=== PATIENT | female | born 1975 | race Asian ===

== ENCOUNTER 2020-12-20 16:19 | Inpatient (IN) | payer OTHER ==
[~2020-12-20] VITALS: Ht 157.5 cm; Wt 72.6 kg
[2020-12-20] MEDS ORDERED: LACTATED RINGERS 1,000 ML IV SCH (17:15)
[2020-12-20 18:23] LABS: BASOPHILS % 0.2 % (0.0-2.0); EOSINOPHILS % 0.5 % (0.0-5.0); HEMATOCRIT. 40.7 % (36.0-48.0); HEMOGLOBIN. 14.2 g/dL (12.0-16.0); MEAN PLATELET VOLUME 10.3 fl (7.4-10.4); MONOCYTES % 6.8 % (2.0-8.0); NEUTROPHILS % 67.5 % (40.0-76.0); PLATELET 203 x1000/uL (130-400); RED BLOOD CELL COUNT 4.43 mill/uL (4.2-5.4)
[2020-12-20 18:24] LABS: CLARITY URINE CLEAR (CLEAR); COLOR URINE YELLOW (YELLOW); KETONES URINE NEGATIVE (NEGATIVE); LEUKOCYTE ESTERASE URINE TRACE (NEGATIVE); NITRITE URINE NEGATIVE (NEGATIVE); OCCULT BLOOD URINE NEGATIVE (NEGATIVE); PH URINE 6.5 (4.5-8.0); PROTEIN URINE NEGATIVE (NEGATIVE); SPECIFIC GRAVITY URINE 1.007 (1.005-1.030); UROBILINOGEN URINE 0.2 E.U./dL (0.2-1.0)
[2020-12-20] MEDS ORDERED: OXYTOCIN 20 UNITS in LACTATED RINGERS 1,000 ML IV SCH (18:30)
[2020-12-20 18:34] LABS: *AMPHETAMINES SCREEN URINE NEGATIVE (NEGATIVE); *BARBITURATES SCREEN URINE NEGATIVE (NEGATIVE); *BENZODIAZEPINES SCREEN URINE NEGATIVE (NEGATIVE); *COCAINE SCREEN URINE NEGATIVE (NEGATIVE); METHADONE URINE SCREEN NEGATIVE (NEGATIVE); OPIATES URINE SCREEN NEGATIVE (NEGATIVE)
[2020-12-20 18:35] LABS: CANNABINOID URINE SCREEN NEGATIVE (NEGATIVE); PHENCYCLIDINE URINE SCREEN NEGATIVE (NEGATIVE)
[2020-12-20 18:40] LABS: INR 0.9; PARTIAL THROMBOPLASTIN TIME 26.5 sec (23.4-31.0); PROTHROMBIN TIME 9.8 sec (9.6-11.0)
[2020-12-20] MEDS ORDERED: FENTANYL CITRATE/PF 50MCG/ML 2ML VIAL ONE ×2 (18:40→19:38)
[2020-12-20] MEDS ORDERED: MORPHINE SULFATE/PF 1MG/ML 10ML AMP ONE (18:40)
[2020-12-20] MEDS ORDERED: IBUPROFEN 400MG TABLET PO PRN (18:45)
[2020-12-20] MEDS ORDERED: DIPHENHYDRAMINE 25MG CAPSULE PO PRN (18:45)
[2020-12-20] MEDS ORDERED: LANOLIN OINT 7GM TUBE TOP PRN (18:45)
[2020-12-20] MEDS ORDERED: ONDANSETRON HCL 4MG/2ML INJ IV PRN ×2 (18:45→19:30)
[2020-12-20] MEDS ORDERED: OXYCODONE HCL/ACETAMINOPHEN 5/325MG TABLET PO PRN (18:45)
[2020-12-20] MEDS ORDERED: HYDROMORPHONE HCL/PF 2MG/ML CPJ IV PRN ×2 (18:45→19:30)
[2020-12-20 19:02] LABS: HEPATITIS B SURFACE ANTIGEN NEGATIVE
[2020-12-20] MEDS ORDERED: KETAMINE HCL 50 MG/ML 10ML ONE (19:21)
[2020-12-20] MEDS ORDERED: MIDAZOLAM HCL 2 MG/2 ML VIAL ONE ×2 (19:22→19:48)
[2020-12-20] MEDS ORDERED: LABETALOL 5MG/ML SYR 20 MG/4 ML SYRINGE IV PRN (19:30)
[2020-12-20] MEDS ORDERED: MEPERIDINE HCL/PF 25MG/ML CPJ IV PRN (19:30)
[2020-12-20] MEDS ORDERED: BUTORPHANOL TARTRATE 2 MG/ML VIAL IM PRN (19:30)
[2020-12-20] MEDS ORDERED: KETOROLAC 30MG/ML VIAL IV PRN (19:30)
[2020-12-20] MEDS ORDERED: DIPHENHYDRAMINE 50MG/ML VIAL IV PRN (19:30)
[2020-12-20] MEDS ORDERED: DOCUSATE SODIUM 100MG CAPSULE PO SCH (21:00)
[2020-12-20 21:30] VITALS: BP 116/52
[2020-12-21] VITALS: BP 118/63
[2020-12-21 04:00] VITALS: BP 117/60
[2020-12-21] MEDS ORDERED: LEVOTHYROXINE SODIUM 150MCG TABLET PO NR (06:00)
[2020-12-21 06:38] LABS: HEMATOCRIT. 32.8 % (36.0-48.0); HEMOGLOBIN. 11.1 g/dL (12.0-16.0); MEAN CORPUSCULAR HEMOGLOBIN 31.9 pg (28.0-32.0); MEAN CORPUSCULAR VOLUME 94.5 fL (81.0-99.0); PLATELET 176 x1000/uL (130-400); RED BLOOD CELL COUNT 3.47 mill/uL (4.2-5.4); RED CELL DISTRIBUTION WIDTH 13.2 % (11.6-14.6)
[2020-12-21] MEDS ORDERED: LEVOTHYROXINE SODIUM 75MCG TABLET PO SCH (07:00)
[2020-12-21 08:00] VITALS: BP 121/60
[2020-12-21] MEDS ORDERED: KETOROLAC 30MG/ML VIAL IV NR (10:30)
[2020-12-21] MEDS ORDERED: KETOROLAC 30MG/ML VIAL ONE (10:45)
[2020-12-21 13:07] LABS: PLATELET ESTIMATE NORMAL
[2020-12-21 15:00] VITALS: BP 115/60
[2020-12-21 19:30] VITALS: BP 115/54
[2020-12-21] MEDS ORDERED: GENTAMICIN 120MG PREMIX 100 ML IV NR (20:00)
[2020-12-21] MEDS: CLINDAMYCIN 900 MG PREMIX 50 ML IV SCH (20:46)
[2020-12-21 21:36] LABS: CHLORIDE 108 mEq/L (98-107)
[2020-12-21] MEDS: HYDROCODONE/ACETAMINOPHEN 5/325MG TABLET PO PRN (23:59)
[2020-12-22 04:00] VITALS: BP 108/45
[2020-12-22] MEDS ORDERED: LEVOTHYROXINE SODIUM 150MCG TABLET PO SCH (06:00)
[2020-12-22] MEDS: HYDROCODONE/ACETAMINOPHEN 5/325MG TABLET PO PRN (06:07)
[2020-12-22 08:24] VITALS: BP 114/48
[2020-12-22 10:34] LABS: BASOPHILS % 0.1 % (0.0-2.0); EOSINOPHILS % 0.1 % (0.0-5.0); HEMATOCRIT. 25.8 % (36.0-48.0); HEMOGLOBIN. 8.7 g/dL (12.0-16.0); LYMPHOCYTES % 10.8 % (20.0-50.0); MEAN CORPUSCULAR HEMOGLOBIN 31.6 pg (28.0-32.0); MEAN CORPUSCULAR VOLUME 94.1 fL (81.0-99.0); MEAN PLATELET VOLUME 9.3 fl (7.4-10.4); MONOCYTES % 7.7 % (2.0-8.0); NEUTROPHILS % 81.3 % (40.0-76.0); PLATELET 177 x1000/uL (130-400); RED BLOOD CELL COUNT 2.74 mill/uL (4.2-5.4)
[2020-12-22] MEDS ORDERED: GENTAMICIN 100MG PREMIX 50 ML IV SCH (11:00)
[2020-12-22] MEDS: CLINDAMYCIN 900 MG PREMIX 50 ML IV SCH (11:22)
[2020-12-22 15:45] VITALS: BP 118/69
== END 2020-12-22 17:10 | disposition home or self-care (01) | DRG 540 ==
LOC: OBSVTOIN 16:19 → 8 EST LDRP 16:19 → 8EST 21:30
PROVIDERS: ADMIT Obstetrics & Gynecology; ATTEND Obstetrics & Gynecology
PROC: 10D00Z1 Extraction of Products of Conception, Low, Open Approach (ICD-10-PCS; principal; 2020-12-20)
PROC: 0UB70ZZ Excision of Bilateral Fallopian Tubes, Open Approach (ICD-10-PCS; 2020-12-20)
DX: O34.211 Maternal care for low transverse scar from previous cesarean delivery (principal); O24.420 Gestational diabetes mellitus in childbirth, diet controlled; Z20.822 Contact with and (suspected) exposure to COVID-19; Z3A.39 39 weeks gestation of pregnancy; Z30.2 Encounter for sterilization; Z37.0 Single live birth
CPT/HCPCS: 36415; 80048; 80305; 81003; 82947; 85025; 86592; 86703; 86762; 86850; 86900; 87340; 87426; 88302; 88307; 99281; J1580; J1885; J2250; J2274; J3010; J3490; J7120; A4315